=== PATIENT | male | born 1950 | race African-American/Black ===

== ENCOUNTER 2019-06-12 20:13 | Inpatient (IN) | payer BC, MEDICARE ==
[~2019-06-12] VITALS: Ht 172.7 cm; Wt 95.7 kg
[2019-06-12 20:49] LABS: BASOPHILS % 0.9 % (0.0-2.0); EOSINOPHILS % 1.3 % (0.0-5.0); HEMATOCRIT. 44.2 % (42.0-52.0); HEMOGLOBIN. 14.8 g/dL (14.0-18.0); LYMPHOCYTES % 33.9 % (20.0-50.0); MEAN CORPUSCULAR HEMOGLOBIN 31.5 pg (28.0-32.0); MEAN CORPUSCULAR VOLUME 94.1 fL (80.0-94.0); MEAN PLATELET VOLUME 7.6 fl (7.4-10.4); MONOCYTES % 7.5 % (2.0-8.0); NEUTROPHILS % 56.4 % (40.0-76.0); PLATELET 153 x1000/uL (130-400); RED CELL DISTRIBUTION WIDTH 14.2 % (11.6-14.6)
[2019-06-12 20:56] LABS: INR 1.2; PROTHROMBIN TIME 13.1 sec (9.6-11.0)
[2019-06-12] MEDS ORDERED: IOHEXOL-350 100 ML BOTTLE ONE (21:07)
[2019-06-12 21:27] LABS: CHLORIDE 112 mEq/L (98-107)
[2019-06-12 21:32] LABS: ETHANOL BLOOD < 10 mg/dL
[2019-06-12 21:35] LABS: LDL CHOLESTEROL 135 mg/dL (5-100)
[2019-06-12 21:36] LABS: CREATINE KINASE 199 IU/L (39-308)
[2019-06-12] MEDS ORDERED: LABETALOL 5MG/ML SYR 20 MG/4 ML SYRINGE IV ONE (22:15)
[2019-06-12] MEDS ORDERED: LEVOFLOXACIN 500MG PREMIX 100 ML IV ONE (22:45)
[2019-06-12 23:09] LABS: CLARITY URINE CLEAR (CLEAR); COLOR URINE YELLOW (YELLOW); KETONES URINE NEGATIVE (NEGATIVE); LEUKOCYTE ESTERASE URINE NEGATIVE (NEGATIVE); NITRITE URINE NEGATIVE (NEGATIVE); OCCULT BLOOD URINE NEGATIVE (NEGATIVE); PROTEIN URINE 2+ (NEGATIVE); SPECIFIC GRAVITY URINE 1.024 (1.005-1.030); UROBILINOGEN URINE 0.2 E.U./dL (0.2-1.0)
[2019-06-12 23:20] LABS: *AMPHETAMINES SCREEN URINE NEGATIVE (NEGATIVE); *BARBITURATES SCREEN URINE NEGATIVE (NEGATIVE); *COCAINE SCREEN URINE NEGATIVE (NEGATIVE)
[2019-06-12 23:21] LABS: *BENZODIAZEPINES SCREEN URINE NEGATIVE (NEGATIVE); CANNABINOID URINE SCREEN NEGATIVE (NEGATIVE); METHADONE URINE SCREEN NEGATIVE (NEGATIVE); OPIATES URINE SCREEN NEGATIVE (NEGATIVE); PHENCYCLIDINE URINE SCREEN NEGATIVE (NEGATIVE)
[2019-06-12] MEDS ORDERED: HYDRALAZINE 20MG/ML VIAL IV ONE (23:30)
[2019-06-13 01:42] VITALS: BP 190/147
[2019-06-13] MEDS ORDERED: ATOR20TA65 MT (02:50)
[2019-06-13] MEDS ORDERED: DIGO125T80 MT (02:50)
[2019-06-13] MEDS ORDERED: RIVA20TA MT (02:50)
[2019-06-13] MEDS ORDERED: LOSA50TA41 MT (02:50)
[2019-06-13] MEDS ORDERED: CARV25TA47 MT (02:50)
[2019-06-13] MEDS ORDERED: CARD12 PO (02:50)
[2019-06-13] MEDS ORDERED: TAMS-11 PO (02:50)
[2019-06-13] MEDS ORDERED: FURO40TA5 MT (02:50)
[2019-06-13] MEDS ORDERED: SPIR50TA5 MT (02:50)
[2019-06-13 04:00] VITALS: BP 171/122
[2019-06-13] MEDS: DILTIAZEM HCL 180MG CAPSULE CD 24HR PO SCH ×2 (05:36→08:34)
[2019-06-13 08:00] VITALS: BP 178/142
[2019-06-13] MEDS: CARVEDILOL 12.5MG TABLET PO SCH ×2 (08:34→21:28)
[2019-06-13] MEDS: SPIRONOLACTONE 50MG TABLET PO SCH (08:34)
[2019-06-13] MEDS: FUROSEMIDE 40MG TABLET PO SCH (08:34)
[2019-06-13] MEDS: ACETAMINOPHEN 325MG TABLET PO PRN (08:35)
[2019-06-13] MEDS: LOSARTAN POTASSIUM 50 MG TABLET PO SCH (08:35)
[2019-06-13 09:38] LABS: BASOPHILS % 0.6 % (0.0-2.0); EOSINOPHILS % 1.2 % (0.0-5.0); HEMOGLOBIN. 16.4 g/dL (14.0-18.0); LYMPHOCYTES % 27.2 % (20.0-50.0); MEAN CORPUSCULAR HEMOGLOBIN 31.3 pg (28.0-32.0); MEAN CORPUSCULAR VOLUME 93.5 fL (80.0-94.0); MEAN PLATELET VOLUME 7.8 fl (7.4-10.4); MONOCYTES % 9.2 % (2.0-8.0); NEUTROPHILS % 61.8 % (40.0-76.0); PLATELET 161 x1000/uL (130-400); RED BLOOD CELL COUNT 5.25 mill/uL (4.7-6.1); RED CELL DISTRIBUTION WIDTH 14.2 % (11.6-14.6)
[2019-06-13 09:55] LABS: CHLORIDE 106 mEq/L (98-107)
[2019-06-13 10:04] LABS: LDL CHOLESTEROL 158 mg/dL (5-100)
[2019-06-13 10:07] LABS: HDL CHOLESTEROL 32 mg/dL (40-59)
[2019-06-13 12:00] VITALS: BP 146/97
[2019-06-13] MEDS ORDERED: DIPHENHYDRAMINE 50MG/ML VIAL IV PRN (13:30)
[2019-06-13] MEDS ORDERED: BISACODYL 10MG SUPP PR PRN (13:30)
[2019-06-13] MEDS ORDERED: IPRATROPIUM/ALBUTEROL 0.5-3(2.5)MG/3ML NEB HHN PRN (13:30)
[2019-06-13] MEDS ORDERED: LORAZEPAM 2MG/ML CPJ IV PRN (13:30)
[2019-06-13] MEDS ORDERED: HYDROCODONE/ACETAMINOPHEN 5/325MG TABLET PO PRN (13:30)
[2019-06-13] MEDS ORDERED: ONDANSETRON HCL 4MG/2ML INJ IV PRN (13:30)
[2019-06-13] MEDS ORDERED: HYDRALAZINE 20MG/ML VIAL IV PRN (13:30)
[2019-06-13] MEDS: ASPIRIN 81MG TABLET PO SCH (14:04)
[2019-06-13 14:06] LABS: BG BASE EXCESS -5.4 mmol/L (-2.0-2.0); BG CARBOXYHEMOGLOBIN 0.5 % (0.5-1.5); BG DEOXYHEMOGLOBIN 3.6 % (0.0-5.0); BG FRACTION INSPIRED OXYGEN 21; BG HCO3 ACT 16.6 mmol/L (22.0-26.0); BG METHEMOGLOBIN 0.4 % (0.0-1.5); BG OXYGEN SATURATION 96.4 % (92.0-98.5); BG OXYHEMOGLOBIN 95.5 % (94.0-97.0); BG PCO2 24.5 mmHg (35.0-45.0); BG PO2 93.3 mmHg (75.0-100.0); BG SAMPLE SITE RIGHT RADIAL; BG TOTAL HEMOGLOBIN 14.4 g/dL (12.0-18.0); BG VENT MODE ROOM AIR
[2019-06-13 16:00] VITALS: BP 160/104
[2019-06-13 16:31] LABS: CREATINE KINASE MB FRACTION 3.8 ng/mL (0.5-3.6)
[2019-06-13] MEDS ORDERED: RIVAROXABAN 10 MG TABLET PO SCH (17:00)
[2019-06-13] MEDS: DIGOXIN 125MCG TABLET PO SCH (17:35)
[2019-06-13 20:00] VITALS: BP 158/100
[2019-06-13] MEDS ORDERED: ATORVASTATIN CALCIUM 40MG TABLET PO SCH (21:00)
[2019-06-14] VITALS: BP 145/99
[2019-06-14 05:55] VITALS: BP 160/117
[2019-06-14 06:16] LABS: CHLORIDE 107 mEq/L (98-107)
[2019-06-14 06:29] LABS: BASOPHILS % 0.5 % (0.0-2.0); EOSINOPHILS % 1.8 % (0.0-5.0); HEMATOCRIT. 45.5 % (42.0-52.0); HEMOGLOBIN. 15.5 g/dL (14.0-18.0); LYMPHOCYTES % 34.4 % (20.0-50.0); MEAN CORPUSCULAR HEMOGLOBIN 31.6 pg (28.0-32.0); MEAN CORPUSCULAR VOLUME 92.8 fL (80.0-94.0); MEAN PLATELET VOLUME 7.9 fl (7.4-10.4); MONOCYTES % 9.7 % (2.0-8.0); NEUTROPHILS % 53.6 % (40.0-76.0); PLATELET 159 x1000/uL (130-400); RED BLOOD CELL COUNT 4.91 mill/uL (4.7-6.1); RED CELL DISTRIBUTION WIDTH 14.2 % (11.6-14.6)
[2019-06-14 08:00] VITALS: BP_SYST 152; BP_SYST 159; BP_SYST 164; BP_DIAS 107; BP_DIAS 110; BP_DIAS 123
[2019-06-14] MEDS: SPIRONOLACTONE 50MG TABLET PO SCH (08:23)
[2019-06-14] MEDS: ASPIRIN 81MG TABLET PO SCH (08:23)
[2019-06-14] MEDS: LOSARTAN POTASSIUM 50 MG TABLET PO SCH (08:24)
[2019-06-14] MEDS: FUROSEMIDE 40MG TABLET PO SCH (08:24)
[2019-06-14] MEDS: DILTIAZEM HCL 180MG CAPSULE CD 24HR PO SCH (08:24)
[2019-06-14] MEDS: CARVEDILOL 12.5MG TABLET PO SCH (08:24)
[2019-06-14] MEDS: ACETAMINOPHEN 325MG TABLET PO PRN (08:24)
[2019-06-14] MEDS ORDERED: POTASSIUM CHLORIDE 10MEQ TABLET SR PO NR (10:15)
[2019-06-14 12:00] VITALS: BP 156/118
[2019-06-14 16:45] VITALS: BP 143/114
[2019-06-14] MEDS ORDERED: RIVAROXABAN 20 MG TABLET PO SCH (17:00)
[2019-06-14] MEDS: DIGOXIN 125MCG TABLET PO SCH (17:14)
== END 2019-06-14 17:28 | disposition home or self-care (01) | DRG 69 ==
LOC: ER 20:13 → 7WST 21:45 → EDBEDREQ 21:48 → EDBEDREQTM 21:48 → ENRESERV 22:54
PROVIDERS: ADMIT Internal Medicine; ATTEND Internal Medicine
DX: G45.9 Transient cerebral ischemic attack, unspecified (principal); I50.43 Acute on chronic combined systolic (congestive) and diastolic (congestive) heart failure; D68.59 Other primary thrombophilia; G81.91 Hemiplegia, unspecified affecting right dominant side; I45.2 Bifascicular block; I48.20 Chronic atrial fibrillation, unspecified; I16.0 Hypertensive urgency; E66.01 Morbid (severe) obesity due to excess calories; E78.5 Hyperlipidemia, unspecified; E87.6 Hypokalemia; G90.8 Other disorders of autonomic nervous system; E11.9 Type 2 diabetes mellitus without complications; D72.819 Decreased white blood cell count, unspecified; E86.0 Dehydration; I11.0 Hypertensive heart disease with heart failure; N40.0 Benign prostatic hyperplasia without lower urinary tract symptoms; Z79.01 Long term (current) use of anticoagulants; Z68.32 Body mass index [BMI] 32.0-32.9, adult; Z79.899 Other long term (current) drug therapy
CPT/HCPCS: 36415; 36600; 70496; 70498; 70551; 71045; 80048; 80053; 80061; 80162; 80305; 80320; 81003; 82375; 82550; 82553; 82805; 83036; 83605; 83721; 83880; 84153; 84484; 85025; 85379; 93005; 93306; 93970; 95816; 97162; 97166; 99291; J0360; J1956; J3490; Q9967; G0103; G0480

== ENCOUNTER 2022-05-06 11:22 | Inpatient (IN) | payer BC, OTHER ==
[~2022-05-06] VITALS: Ht 172.7 cm; Wt 110.7 kg
[~2022-05-06 11:22] MED LIST: ATOR20TA65 MT; CARD12 PO; CARV25TA47 MT; DIGO125T80 MT; FURO40TA5 MT; LOSA50TA41 MT; RIVA20TA MT; SPIR50TA5 MT; TAMS-11 PO
[2022-05-06 13:00] LABS: BASOPHILS % 0.7 % (0.0-2.0); EOSINOPHILS % 0.8 % (0.0-5.0); HEMATOCRIT. 44.7 % (42.0-52.0); HEMOGLOBIN. 14.5 g/dL (14.0-18.0); LYMPHOCYTES % 18.2 % (20.0-50.0); MEAN CORPUSCULAR HEMOGLOBIN 30.5 pg (28.0-32.0); MEAN CORPUSCULAR VOLUME 94.2 fL (80.0-94.0); MONOCYTES % 9.5 % (2.0-8.0); NEUTROPHILS % 70.8 % (40.0-76.0); PLATELET 189 x1000/uL (130-400); RED BLOOD CELL COUNT 4.75 mill/uL (4.7-6.1); RED CELL DISTRIBUTION WIDTH 15.7 % (11.6-14.6)
[2022-05-06 13:02] LABS: CHLORIDE 106 mEq/L (98-107)
[2022-05-06] MEDS: FUROSEMIDE 40MG/4ML VIAL IVP SCH (13:09)
[2022-05-06] MEDS ORDERED: DILTIAZEM HCL 5MG/ML 5ML VIAL IV ONE (13:30)
[2022-05-06] MEDS ORDERED: ACETAMINOPHEN 325MG TABLET PO PRN (15:15)
[2022-05-06] MEDS ORDERED: ONDANSETRON HCL 4MG/2ML INJ IV PRN (15:15)
[2022-05-06] MEDS ORDERED: DILTIAZEM HCL 5MG/ML 5ML VIAL IV NR (15:30)
[2022-05-06 15:40] LABS: BG BASE EXCESS 0.9 mmol/L (-2.0-2.0); BG CARBOXYHEMOGLOBIN 1.6 % (0.5-1.5); BG DEOXYHEMOGLOBIN 2.7 % (0.0-5.0); BG FRACTION INSPIRED OXYGEN 36; BG HCO3 ACT 24.5 mmol/L (22.0-26.0); BG METHEMOGLOBIN 0.5 % (0.0-1.5); BG OXYGEN SATURATION 97.2 % (92.0-98.5); BG OXYHEMOGLOBIN 95.2 % (94.0-97.0); BG PO2 91.3 mmHg (75.0-100.0); BG SAMPLE SITE RIGHT RADIAL; BG TOTAL HEMOGLOBIN 14.9 g/dL (12.0-18.0); BG VENT MODE NASAL CANNULA
[2022-05-06] MEDS: SPIRONOLACTONE 25MG TABLET PO SCH (16:04)
[2022-05-06] MEDS ORDERED: HYDRALAZINE 20MG/ML VIAL IV NR (16:15)
[2022-05-06] MEDS: RIVAROXABAN 20 MG TABLET PO SCH (17:00)
[2022-05-06 18:30] VITALS: BP 175/121
[2022-05-06] MEDS: DILTIAZEM HCL 60MG TABLET PO SCH (18:31)
[2022-05-06] MEDS: HYDRALAZINE 20MG/ML VIAL IV PRN (19:46)
[2022-05-06 20:00] VITALS: BP 183/106
[2022-05-06 20:16] VITALS: BP 145/109
[2022-05-06 21:00] VITALS: BP 140/70
[2022-05-06] MEDS: CARVEDILOL 12.5MG TABLET PO SCH (21:30)
[2022-05-06 21:42] VITALS: BP 129/81
[2022-05-06 23:17] LABS: CREATINE KINASE MB FRACTION 7.6 ng/mL (0.5-3.6)
[2022-05-07] VITALS (7 sets, daily range): BP systolic 128–166; BP diastolic 73–103
[2022-05-07] MEDS: DILTIAZEM HCL 60MG TABLET PO SCH ×5 (06:10→23:28)
[2022-05-07 06:20] LABS: BASOPHILS % 0.8 % (0.0-2.0); EOSINOPHILS % 1.9 % (0.0-5.0); HEMATOCRIT. 42.8 % (42.0-52.0); MEAN CORPUSCULAR HEMOGLOBIN 30.6 pg (28.0-32.0); MEAN CORPUSCULAR VOLUME 93.7 fL (80.0-94.0); MEAN PLATELET VOLUME 8.1 fl (7.4-10.4); MONOCYTES % 10.9 % (2.0-8.0); NEUTROPHILS % 67.4 % (40.0-76.0); PLATELET 175 x1000/uL (130-400); RED BLOOD CELL COUNT 4.57 mill/uL (4.7-6.1); RED CELL DISTRIBUTION WIDTH 15.7 % (11.6-14.6)
[2022-05-07 06:23] LABS: CHLORIDE 105 mEq/L (98-107)
[2022-05-07 06:38] LABS: CREATINE KINASE 228 IU/L (39-308); CREATINE KINASE MB FRACTION 7.8 ng/mL (0.5-3.6)
[2022-05-07] MEDS: CARVEDILOL 12.5MG TABLET PO SCH ×2 (08:10→21:18)
[2022-05-07] MEDS: SPIRONOLACTONE 25MG TABLET PO SCH (08:10)
[2022-05-07] MEDS ORDERED: ENOXAPARIN 100MG/ML SYR SUBCUT NR (10:00)
[2022-05-07] MEDS ORDERED: CARVEDILOL 12.5MG TABLET PO NR (11:00)
[2022-05-07] MEDS: FUROSEMIDE 40MG/4ML VIAL IVP SCH ×2 (14:35→18:53)
[2022-05-07] MEDS: RIVAROXABAN 20 MG TABLET PO SCH (18:18)
[2022-05-08] VITALS: BP 165/132
[2022-05-08 04:00] VITALS: BP 149/104
[2022-05-08] MEDS: DILTIAZEM HCL 60MG TABLET PO SCH ×3 (06:20→18:07)
[2022-05-08 06:30] LABS: CHLORIDE 108 mEq/L (98-107)
[2022-05-08 06:42] LABS: BASOPHILS % 0.4 % (0.0-2.0); EOSINOPHILS % 2.1 % (0.0-5.0); HEMATOCRIT. 40.7 % (42.0-52.0); HEMOGLOBIN. 13.3 g/dL (14.0-18.0); LYMPHOCYTES % 25.5 % (20.0-50.0); MEAN CORPUSCULAR HEMOGLOBIN 30.6 pg (28.0-32.0); MEAN CORPUSCULAR VOLUME 93.9 fL (80.0-94.0); MEAN PLATELET VOLUME 8.1 fl (7.4-10.4); PLATELET 185 x1000/uL (130-400); RED BLOOD CELL COUNT 4.34 mill/uL (4.7-6.1); RED CELL DISTRIBUTION WIDTH 15.5 % (11.6-14.6)
[2022-05-08 08:00] VITALS: BP 159/106
[2022-05-08] MEDS: FUROSEMIDE 40MG/4ML VIAL IVP SCH ×2 (10:23→18:07)
[2022-05-08] MEDS: CARVEDILOL 12.5MG TABLET PO SCH ×2 (10:23→21:07)
[2022-05-08] MEDS: SPIRONOLACTONE 25MG TABLET PO SCH (10:23)
[2022-05-08 12:00] VITALS: BP 140/108
[2022-05-08 16:00] VITALS: BP 143/94
[2022-05-08 17:47] LABS: T4 FREE 0.88 ng/dL (0.76-1.46)
[2022-05-08] MEDS: RIVAROXABAN 20 MG TABLET PO SCH (18:07)
[2022-05-08 20:00] VITALS: BP 149/117
[2022-05-08 23:38] LABS: CLARITY URINE CLEAR (CLEAR); COLOR URINE YELLOW (YELLOW); KETONES URINE NEGATIVE (NEGATIVE); LEUKOCYTE ESTERASE URINE NEGATIVE (NEGATIVE); NITRITE URINE NEGATIVE (NEGATIVE); OCCULT BLOOD URINE NEGATIVE (NEGATIVE); PH URINE 7.5 (4.5-8.0); PROTEIN URINE NEGATIVE (NEGATIVE); SPECIFIC GRAVITY URINE 1.009 (1.005-1.030)
[2022-05-08 23:50] LABS: *AMPHETAMINES SCREEN URINE NEGATIVE (NEGATIVE); *BARBITURATES SCREEN URINE NEGATIVE (NEGATIVE); *BENZODIAZEPINES SCREEN URINE NEGATIVE (NEGATIVE); *COCAINE SCREEN URINE NEGATIVE (NEGATIVE); CANNABINOID URINE SCREEN NEGATIVE (NEGATIVE); METHADONE URINE SCREEN NEGATIVE (NEGATIVE); OPIATES URINE SCREEN NEGATIVE (NEGATIVE); PHENCYCLIDINE URINE SCREEN NEGATIVE (NEGATIVE)
[2022-05-09] VITALS: BP 129/81
[2022-05-09 04:00] VITALS: BP 147/115
[2022-05-09] MEDS: DILTIAZEM HCL 60MG TABLET PO SCH ×2 (06:00)
[2022-05-09 08:02] VITALS: BP 175/95
[2022-05-09] MEDS: CARVEDILOL 12.5MG TABLET PO SCH (08:43)
[2022-05-09] MEDS: FUROSEMIDE 40MG/4ML VIAL IVP SCH (08:43)
[2022-05-09] MEDS: SPIRONOLACTONE 25MG TABLET PO SCH (08:43)
[2022-05-09 09:57] VITALS: BP_SYST 129; BP_SYST 150; BP_DIAS 66; BP_DIAS 90
[2022-05-09] MEDS: HYDRALAZINE 20MG/ML VIAL IV PRN (10:03)
[2022-05-09] MEDS ORDERED: HYDRALAZINE HCL 50MG TABLET PO SCH (10:15)
[2022-05-09 11:31] VITALS: BP 129/66
[2022-05-09 11:41] LABS: BASOPHILS % 0.6 % (0.0-2.0); EOSINOPHILS % 2.2 % (0.0-5.0); HEMATOCRIT. 44.7 % (42.0-52.0); HEMOGLOBIN. 14.6 g/dL (14.0-18.0); MEAN CORPUSCULAR HEMOGLOBIN 31.1 pg (28.0-32.0); MEAN CORPUSCULAR VOLUME 95.2 fL (80.0-94.0); MEAN PLATELET VOLUME 7.8 fl (7.4-10.4); MONOCYTES % 8.8 % (2.0-8.0); NEUTROPHILS % 61.4 % (40.0-76.0); PLATELET 195 x1000/uL (130-400); RED CELL DISTRIBUTION WIDTH 15.8 % (11.6-14.6)
[2022-05-09 11:55] LABS: CHLORIDE 106 mEq/L (98-107)
== END 2022-05-09 11:48 | disposition home or self-care (01) | DRG 291 ==
LOC: ER 11:22 → MICUSO 14:23 → 3WST 18:21
PROVIDERS: ADMIT Internal Medicine; ATTEND Internal Medicine
DX: I11.0 Hypertensive heart disease with heart failure (principal); I50.33 Acute on chronic diastolic (congestive) heart failure; I47.20 Ventricular tachycardia, unspecified; I48.91 Unspecified atrial fibrillation; E78.00 Pure hypercholesterolemia, unspecified; I27.20 Pulmonary hypertension, unspecified; E11.9 Type 2 diabetes mellitus without complications; Z79.01 Long term (current) use of anticoagulants; Z86.73 Personal history of transient ischemic attack (TIA), and cerebral infarction without residual deficits; Z79.899 Other long term (current) drug therapy
CPT/HCPCS: 36415; 36600; 71045; 80048; 80053; 80305; 81003; 82375; 82550; 82553; 82805; 83036; 83735; 83880; 84439; 84443; 84481; 84484; 85025; 93005; 93306; 99291; J0360; J1940; J3490

== ENCOUNTER 2022-07-09 10:19 | Emergency (ER) | payer BC, OTHER ==
[~2022-07-09] VITALS: Ht 172.7 cm; Wt 118.0 kg
[2022-07-09] MEDS ORDERED: ACET-2708 MT (12:00)
[2022-07-09] MEDS ORDERED: HYDROCODONE/ACETAMINOPHEN 5/325MG TABLET PO ONE (12:00)
[2022-07-09 12:20] VITALS: BP 177/138
== END 2022-07-09 12:26 | disposition home or self-care (01) ==
LOC: ER 10:19
DX: M25.521 Pain in right elbow (principal); I11.0 Hypertensive heart disease with heart failure; I50.9 Heart failure, unspecified; E11.9 Type 2 diabetes mellitus without complications
CPT/HCPCS: 73080; 73090; 99284